=== PATIENT | female | born 2000 ===

== ENCOUNTER 2021-08-03 06:01 | Day surgery (SDC) | payer OTHER ==
[~2021-08-03] VITALS: Ht 157.5 cm; Wt 40.6 kg
[2021-08-03] MEDS ORDERED: EPIPEN 2-PAK1 MG/ML IM (06:17)
[2021-08-03] MEDS ORDERED: PEPCID 20MG TAB20 MG PO (06:18)
[2021-08-03] MEDS ORDERED: BENADRYL25 M2 PO (06:20)
[2021-08-03] MEDS ORDERED: [UNRECOGNIZED DRUG - OTHER] PO (06:21)
[2021-08-03 06:45] VITALS: BP 105/79; PULSE 109; TEMP 97.6
[2021-08-03 07:50] VITALS: BP 93/65; PULSE 95; TEMP 96.7
--- NOTE | 2021-08-03 07:50 | NUR ---
Pt arrived from procedure sleepy, but arouses to name and stimuli. Monitors applied and VSS. is present in room. Verbal report obtained from LULU Goodwin. stopped by but states will come back when pt is more awake. Call miguel is within reach on side table. Side rails x2.
[2021-08-03 08:05] VITALS: BP 100/69; PULSE 86
--- NOTE | 2021-08-03 08:05 | NUR ---
Pt is drowsy but awake, and talking with her . VSS. Warm muffin and ice water provided per pt request. Call miguel remains within reach. Pt denies nausea. No vomiting
[2021-08-03 08:20] VITALS: BP 104/64; PULSE 79
--- NOTE | 2021-08-03 08:20 | NUR ---
VSS. Pt expressed desire to be discharged. IV discontinued. Catheter tip intact. Pressure bandage applied. NO redness or swelling noted. DC instructions and educational material reviewed with the pt and her SO. Questions answered and pt signed the related paperwork. Pt denied needing assistance changing into personal clothes. call miguel remains within reach.
--- NOTE | 2021-08-03 08:37 | NUR ---
Pt dismissed from endo via wheelchair to the pt entrence by Sonia LAWSON and tranferred into the care of her , who is present to drive private car. Pt had dc packet and personal belongings.
== END 2021-08-03 08:38 | disposition home or self-care (01) ==
LOC: SDCO 06:01
DX: K59.09 Other constipation (principal); R14.0 Abdominal distension (gaseous); R10.9 Unspecified abdominal pain; R59.0 Localized enlarged lymph nodes; Z79.899 Other long term (current) drug therapy
CPT/HCPCS: J2704; J7120